=== PATIENT | female | born 1995 | race Caucasian/White ===

== ENCOUNTER → 2023-09-18 | Outpatient (CLI) | payer BC ==
--- NOTE | 2023-09-19 08:33 | US ---
EXAMINATION TYPE: US kidneys/renal and bladder DATE OF EXAM: 09/18/2023 COMPARISON: NONE CLINICAL INDICATION: Female, 28 years old with history of N20.0 CALCULUS OF KIDNEY; EXAM MEASUREMENTS: Right Kidney: 9.8 x 5.0 x 5.1 cm Left Kidney: 9.4 x 4.3 x 4.5 cm Capacity Analyst notes:Difficult and limited study due to patient body habitus and overlying bowel gas Right Kidney: no hydronephrosis or masses seen Left Kidney: no hydronephrosis or masses seen Bladder: wnl Bilateral Jets seen: right jet not seen, left jet seen IMPRESSION: Exam limitations as above. No hydronephrosis seen.
== END | disposition home or self-care (01) ==
LOC: RADUSWWP 14:57
PROVIDERS: ATTEND Urology
DX: N20.0 Calculus of kidney (principal)
CPT/HCPCS: 76770